=== PATIENT | female | born 1985 | race Caucasian/White ===

== ENCOUNTER 2017-09-20 10:28 | Emergency (ER) | payer SELFPAY, OTHER ==
[2017-09-20 10:55] LABS: URINE HCG POC HCG NEGATIVE (Negative)
[2017-09-20 11:17] LABS: BILIRUBIN,URINE NEGATIVE (NEG); CLARITY,URINE CLOUDY; COLOR,URINE AMBER; GLUCOSE,URINE NEGATIVE (NEG); NITRITE,URINE NEGATIVE (NEG); PH,URINE 5.5; PROTEIN,URINE 30 mg/dL (NEG-TRACE); UROBILINOGEN,URINE 0.2 mg/dL (0.2 mg/dL)
[2017-09-20 11:39] LABS: RBC,URINE >40 /HPF (0-2)
[2017-09-20 11:40] LABS: BACTERIA,URINE MODERATE /HPF (0-FEW); SQUAMOUS EPITHELIAL CELL,UR FEW /LPF
[2017-09-21 15:31] LABS: CHLAMYDIA PROBE Negative (Negative); GC PROBE Negative (Negative)
== END 2017-09-20 12:26 | disposition home or self-care (01) ==
LOC: ER 10:28
DX: N39.0 Urinary tract infection, site not specified (principal); N76.0 Acute vaginitis; B96.89 Other specified bacterial agents as the cause of diseases classified elsewhere; N93.8 Other specified abnormal uterine and vaginal bleeding
CPT/HCPCS: 81001; 81025; 87086; 87186; 87491; 87591; 99284; Q0111

== ENCOUNTER 2018-04-02 18:26 | Emergency (ER) | payer OTHER ==
[2018-04-02 19:12] LABS: URINE HCG POC HCG NEGATIVE (Negative)
[2018-04-02 19:33] LABS: BILIRUBIN,URINE NEGATIVE (NEG); CLARITY,URINE CLEAR; COLOR,URINE YELLOW; GLUCOSE,URINE NEGATIVE (NEG); NITRITE,URINE POSITIVE (NEG); PH,URINE 5.5; PROTEIN,URINE NEGATIVE (NEG-TRACE)
[2018-04-02 19:39] LABS: BACTERIA,URINE MANY /HPF (0-FEW)
[2018-04-02 19:40] LABS: SQUAMOUS EPITHELIAL CELL,UR MANY /LPF
[2018-04-02 19:41] LABS: ADD MAN DIFF? NO
[2018-04-02 19:44] LABS: BASO % 0 % (0-3); EOS # 0.1 x10^3/uL (0.0-0.7); EOS % 1 % (0-3); HEMATOCRIT 39.6 % (36.0-47.0); HEMOGLOBIN 13.4 g/dL (12.0-15.5); LYMPH # 3.4 x10^3/uL (1.0-4.8); LYMPH % 38 % (24-48); MEAN CORPUSCULAR HEMOGLOBIN 28 pg (25-35); MEAN CORPUSCULAR HGB CONC 34 g/dL (31-37); MEAN CORPUSCULAR VOLUME 84 fL (79-100); MONO # 0.5 x10^3/uL (0.0-1.1); MONO % 5 % (0-9); NEUT # 4.9 x10^3uL (1.8-7.7); NEUT % 56 % (31-73); PLATELET COUNT 263 x10^3/uL (140-400); RED BLOOD COUNT 4.73 x10^6/uL (3.50-5.40); RED CELL DISTRIBUTION WIDTH 13.7 % (11.5-14.5); WHITE BLOOD COUNT 8.9 x10^3/uL (4.0-11.0)
[2018-04-02] MEDS: ASPIRIN 325 MG TABLET PO (19:48)
[2018-04-02] MEDS: IV NORMAL SALINE 1000ML BAG 1,000 ML IV (19:48)
[2018-04-02 19:51] LABS: PROTHROMBIN TIME PATIENT 12.9 SEC (11.7-14.0)
[2018-04-02 19:56] LABS: D-DIMER 0.28 ug/mlFEU (0.00-0.50)
[2018-04-02 20:01] LABS: ANION GAP 6 (6-14); BLOOD UREA NITROGEN 10 mg/dL (7-20); BUN/CREATININE RATIO 14 (6-20); CARBON DIOXIDE 29 mmol/L (21-32); CHLORIDE 105 mmol/L (98-107); CREATININE 0.7 mg/dL (0.6-1.0); GFR 97.6; GLUCOSE 93 mg/dL (70-99); POTASSIUM 3.8 mmol/L (3.5-5.1); SODIUM 140 mmol/L (136-145)
[2018-04-02 20:08] LABS: ALBUMIN 3.8 g/dL (3.4-5.0); ALBUMIN/GLOBULIN RATIO 1.1 (1.0-1.7); ALK PHOS 78 U/L (46-116); ALT (SGPT) 15 U/L (14-59); AST (SGOT) 13 U/L (15-37); LIPASE 160 U/L (73-393); MAGNESIUM 1.9 mg/dL (1.8-2.4); TOTAL BILIRUBIN 0.3 mg/dL (0.2-1.0); TOTAL PROTEIN 7.4 g/dL (6.4-8.2)
[2018-04-02 20:10] LABS: TROPONINI < 0.017 ng/mL (0.000-0.055)
[2018-04-02 20:16] LABS: NT-PRO BNP 66 pg/mL (0-124)
[2018-04-02 20:16] LABS: CREATINE KINASE 57 U/L (26-192)
[2018-04-02 20:17] LABS: CKMB MASS < 0.5 ng/mL (0.0-3.6)
[2018-04-02] MEDS: ORPHENADRINE CITRATE 60 MG/2 ML VIAL. IM (21:15)
[2018-04-02 21:58] LABS: TROPONINI < 0.017 ng/mL (0.000-0.055)
== END 2018-04-02 22:45 | disposition home or self-care (01) ==
LOC: ER 18:26
DX: N30.00 Acute cystitis without hematuria (principal); R07.89 Other chest pain; R20.2 Paresthesia of skin
CPT/HCPCS: 36415; 71046; 80053; 81001; 81025; 82553; 83690; 83735; 83880; 84484; 85025; 85379; 85610; 93005; 96365; 96366; 96372; 99285-25; J0690; J2360; J7030